=== PATIENT | female | born 1955 | race African-American/Black ===

== ENCOUNTER 2020-10-04 15:57 | Emergency (ER) | payer OTHER ==
[~2020-10-04] VITALS: Ht 167.6 cm; Wt 65.9 kg
[~2020-10-04 15:57] MED LIST: ASPI-1198 PO; HTN MED
[2020-10-04] MEDS ORDERED: TraMADol HCL 50 MG TABLET PO ONE (16:30)
[2020-10-04] MEDS ORDERED: CloNIDine HCL 0.1 MG TABLET PO ONE (18:30)
[2020-10-04] MEDS ORDERED: AmLODIPine BESYLATE 5 MG TABLET PO ONE (18:30)
[2020-10-04 18:40] VITALS: BP 198/110
== END 2020-10-04 20:11 | disposition left against medical advice (07) ==
LOC: EMS 16:02
DX: M25.551 Pain in right hip (principal); M25.561 Pain in right knee; G89.29 Other chronic pain; I10 Essential (primary) hypertension; Z90.710 Acquired absence of both cervix and uterus
CPT/HCPCS: 73502; 99284